=== PATIENT | male | born 1955 | race Caucasian/White ===

== ENCOUNTER → 2017-09-17 10:04 | Outpatient (REF) | payer MEDICAID, SELFPAY ==
[2017-09-17 13:58] LABS: Basophils # 0.1 K/mm3 (0-0.2); Basophils % 0.9 % (0.1-2.0); Eosinophils # 0.1 K/mm3 (0.0-0.4); Eosinophils % 2.1 % (0.1-12.0); Hematocrit 47.5 % (42.0-52.0); Hemoglobin 15.4 g/dL (14.1-18.0); Lymphocytes # 1.8 K/mm3 (0.7-4.5); Lymphocytes % 34.3 K/mm3 (10-50); Mean Corpuscular HGB Conc 32.4 g/dL (31.8-35.4); Mean Corpuscular Hemoglobin 29.8 pg (27.0-31.2); Mean Platelet Volume 10.9 fl (7.4-10.4); Monocytes # 0.4 K/mm3 (0.1-1.0); Monocytes % 6.5 % (1.7-9.3); Neutrophils % 56.3 % (37.0-80.0); Platelet Count 190 K/mm3 (142-424); Red Blood Count 5.16 M/mm3 (4.60-6.20); Red Cell Distribution Width 13.1 % (11.5-17.5); White Blood Count 5.4 K/mm3 (4.8-10.8)
[2017-09-17 14:50] LABS: Erythrocyte Sedimentation Rate 19 mm/hr (0-20)
[2017-09-17 15:05] LABS: Alanine Aminotransferase 27 U/L (12-78); Albumin Level 3.8 gm/dL (3.4-5.0); Albumin/Globulin Ratio 1.3 (1.1-1.8); Alkaline Phosphatase 61 U/L (46-116); Anion Gap 11.6 mEq/L (5-15); Aspartate Amino Transferase 22 U/L (15-37); Bilirubin,Total 0.4 mg/dL (0.2-1.0); Blood Urea Nitrogen 13 mg/dL (7-18); Carbon Dioxide 29 mmol/L (21.0-32.0); Chloride 106 mmol/L (98-107); Chol/HDL Ratio 2.7 (1-3.5); Cholesterol 191 mg/dL (140-200); Creatinine,Serum 0.93 mg/dL (0.70-1.30); Estimated Glomerular Filt Rate 83 ml/min (>60); Free T4 (Free Thyroxine) 1.09 ng/dl (0.76-1.46); GFR (African American) 101 ML/MIN (>60); Glucose 88 mg/dL (74-106); HDL Cholesterol 71 mg/dL (27-67); LDL Cholesterol 108 mg/dL (0-130); Potassium 4.6 mmoL/L (3.5-5.1); Sodium 142 mmol/L (136-145); Thyroid Stimulating Hormone 1.47 uIU/ml (0.358-3.740); Total Protein,Serum 6.8 gm/dL (6.4-8.2); Triglycerides 61 mg/dL (30-200); VLDL Cholesterol 12 mg/dL (0-40)
[2017-09-17 15:06] LABS: C-Reactive Protein < 0.2 mg/L (0.0-0.9)
[2017-09-19 06:45] LABS: PSA, Free 0.23 ng/mL; Prostate Specific Ag 0.4 ng/mL (0.0-4.0)
== END ==
LOC: LAB 10:04
PROVIDERS: Visit Provider Emergency Medicine
DX: R74.8 Abnormal levels of other serum enzymes (principal)
CPT/HCPCS: 80053; 80061; 84153; 84154; 84439; 84443; 85025; 85651; 86140

== ENCOUNTER → 2017-10-16 10:35 | Outpatient (CLI) | payer MEDICAID, SELFPAY | PROVIDERS: PCP Emergency Medicine; Visit Provider Surgery | DX: Z01.818 Encounter for other preprocedural examination (principal); D03.4 Melanoma in situ of scalp and neck | CPT/HCPCS: 93005 ==